=== PATIENT | male | born 1950 | race Two or more races ===

== ENCOUNTER 2022-01-28 05:35 | Day surgery (SDC) | payer OTHER | END 2022-01-28 10:00 | disposition home or self-care (01) | LOC: AMB-ENDOS 05:35 | PROVIDERS: ATTEND Colon & Rectal Surgery | DX: C20 Malignant neoplasm of rectum (principal); C78.5 Secondary malignant neoplasm of large intestine and rectum; K92.1 Melena; K64.8 Other hemorrhoids; K57.90 Diverticulosis of intestine, part unspecified, without perforation or abscess without bleeding; Z20.822 Contact with and (suspected) exposure to COVID-19 ==

== ENCOUNTER 2022-06-02 11:45 | Inpatient (IN) | payer OTHER ==
[~2022-06-02] VITALS: Ht 264.2 cm; Wt 68.0 kg
== END 2022-06-04 18:22 | disposition home or self-care (01) | DRG 395 ==
LOC: O/R 06-03 09:14 → SURG 06-03 11:45 → SURH 06-03 15:27 → SURG 06-06 11:45
PROVIDERS: ADMIT Colon & Rectal Surgery; ATTEND Colon & Rectal Surgery
PROC: 0DJD8ZZ Inspection of Lower Intestinal Tract, Via Natural or Artificial Opening Endoscopic (ICD-10-PCS; 2022-06-03)
PROC: 0DBP8ZZ Excision of Rectum, Via Natural or Artificial Opening Endoscopic (ICD-10-PCS; principal; 2022-06-03 10:30)
DX: D12.8 Benign neoplasm of rectum (principal); Z20.822 Contact with and (suspected) exposure to COVID-19
CPT/HCPCS: 0184T; 45300; 45130